=== PATIENT | female | born 1960 | race Caucasian/White ===

== ENCOUNTER 2019-05-14 06:06 | Day surgery (SDC) | payer MEDICAID ==
[~2019-05-14] VITALS: Ht 167.6 cm; Wt 57.7 kg
[~2019-05-14 06:06] MED LIST: SODIUM CHLORIDE 0.9% 1,000 ML IV ONE
[2019-05-14] MEDS ORDERED: LIDOCAINE 2% 30 ML JELLY TP ONE (06:07)
[2019-05-14] MEDS ORDERED: BENZOCAINE 20% 50 MCG/SPRAY 57 GM TP ONE (06:07)
[2019-05-14] MEDS ORDERED: ALBUTEROL SULFATE 2.5 MG/0.5 ML NEB SOLUTION NEB ONE (06:07)
[2019-05-14] MEDS ORDERED: SODIUM CHLORIDE 0.9% 1,000 ML IV ONE (06:30)
[2019-05-14] MEDS ORDERED: MONT10TA21 PO (07:28)
[2019-05-14] MEDS ORDERED: ALBU2.5V2 NEB (07:28)
[2019-05-14] MEDS ORDERED: GLYC10.7 IH (07:28)
[2019-05-14] MEDS ORDERED: CHOL200059 PO (07:28)
[2019-05-14] MEDS ORDERED: PRED10 PO (07:28)
[2019-05-14] MEDS ORDERED: MULT-1214 PO (07:28)
[2019-05-14] MEDS ORDERED: CLON.5 PO (07:28)
[2019-05-14] MEDS ORDERED: TIOT185 IH (07:28)
[2019-05-14] MEDS ORDERED: FLUT16H NASAL (07:28)
[2019-05-14] MEDS ORDERED: ALBU8.5H8 IH (07:28)
[2019-05-14] MEDS ORDERED: PROZ10 PO (07:28)
[2019-05-14] MEDS ORDERED: SUCR1TAB PO (07:28)
[2019-05-14] MEDS ORDERED: [UNRECOGNIZED DRUG - CODE] PO (07:28)
[2019-05-14] MEDS ORDERED: OMEP20 PO ×2 (07:28)
[2019-05-14] MEDS ORDERED: BUDE10.2 IH (07:28)
[2019-05-14] MEDS ORDERED: FentaNYL CITRATE-PF 100 MCG/2 ML VIAL ONE (07:42)
[2019-05-14] MEDS ORDERED: MIDAZOLAM HCL 2 MG/2 ML VIAL ONE (07:42)
[2019-05-14] MEDS ORDERED: MethylPREDNISolone SOD SUCC 125 MG/2 ML VIAL IVP ONE (08:00)
[2019-05-14] MEDS ORDERED: OXYGEN THERAPY IH SCH (08:00)
[2019-05-14] MEDS ORDERED: MethylPREDNISolone SOD SUCC 125 MG/2 ML VIAL ONE (08:39)
== END 2019-05-14 10:10 | disposition home or self-care (01) ==
LOC: SURGERY 06:06
PROVIDERS: ATTEND Internal Medicine Critical Care Medicine
DX: J38.4 Edema of larynx (principal); B37.0 Candidal stomatitis; J44.9 Chronic obstructive pulmonary disease, unspecified; E78.00 Pure hypercholesterolemia, unspecified; F10.21 Alcohol dependence, in remission; Z88.8 Allergy status to other drugs, medicaments and biological substances; Z87.891 Personal history of nicotine dependence; Z90.710 Acquired absence of both cervix and uterus; Z79.899 Other long term (current) drug therapy; Z87.01 Personal history of pneumonia (recurrent); Z86.69 Personal history of other diseases of the nervous system and sense organs
CPT/HCPCS: 31623; 31624; 71045; 87015; 87070; 87101; 87205; 87206; 87220; 88108; 88312; J2250; J2930; J7030; J3010